=== PATIENT | male | born 1950 | race African-American/Black ===

== ENCOUNTER 2022-09-12 12:27 | Emergency (ER) | payer MEDICARE, BC ==
[~2022-09-12] VITALS: Ht 172.7 cm; Wt 70.0 kg
[2022-09-12 12:30] VITALS: O2SAT 98
[2022-09-12 15:37] LABS: HEMATOCRIT. 38.1 % (42.0-52.0); MEAN CORPUSCULAR HEMOGLOBIN 31.6 pg (28.0-32.0); MEAN CORPUSCULAR HGB CONC 34.1 g/dL (31.0-37.0); MEAN CORPUSCULAR VOLUME 92.6 fL (80.0-94.0); MEAN PLATELET VOLUME 7.9 fl (7.4-10.4); PLATELET 144 x1000/uL (130-400); RED BLOOD CELL COUNT 4.12 mill/uL (4.7-6.1); RED CELL DISTRIBUTION WIDTH 11.9 % (11.6-14.6); WHITE BLOOD COUNT 4.6 x1000/uL (4.5-11.0)
[2022-09-12 15:39] LABS: DIFFERENTIAL COMMENT 1
[2022-09-12 15:50] LABS: CHLORIDE 106 mEq/L (98-107); INDEX HEMOLYSI 3 (1-3); INDEX ICTERIC 1 (1-4); INDEX LIPEMIC 1 (1-3); POTASSIUM 4.3 mEq/L (3.5-5.1); SODIUM 135 mEq/L (136-145)
[2022-09-12 16:16] LABS: ALANINE AMINOTRANSFERASE 25 IU/L (13-61); ALBUMIN 3.4 g/dL (3.4-5.0); ASPARTATE AMINOTRANSFERASE 27 IU/L (15-37); CALCIUM 8.3 mg/dL (8.5-10.1); CARBON DIOXIDE 27 mEq/L (21-32); CREATININE 0.9 mg/dL (0.6-1.3); GLUCOSE 109 mg/dL (70-105); NT PRO B-TYPE NATRIURETIC PEP 108 pg/mL (5-125); PROTEIN TOTAL 7.4 g/dL (6.0-8.3); TROPONIN I HIGH SENSITIVITY 17 ng/L (<78); UREA NITROGEN BLOOD 26 mg/dL (7-21)
[2022-09-12 18:10] LABS: TROPONIN I HIGH SENSITIVITY 16 ng/L (<78)
[2022-09-12 18:44] VITALS: BP 120/53; PULSE 63; RESP 15; TEMP 98.3
[2022-09-12 21:28] LABS: PLATELET ESTIMATE NORMAL
== END 2022-09-12 18:54 | disposition home or self-care (01) ==
LOC: ER 13:16
DX: R55 Syncope and collapse (principal); R42 Dizziness and giddiness
CPT/HCPCS: 36415; 71045; 80053; 83880; 84484; 85025; 93005; 99285